=== PATIENT | male | born 1965 | race Two or more races ===

== ENCOUNTER 2017-07-21 09:48 | Outpatient (CLI) | payer OTHER ==
[~2017-07-21 09:48] MED LIST: BUDEO.25 IH; LEVAQUIN750 MG PO; MEDROL4 MG PO; PROVENTIL3 ML/2.5 M IH; TUSSIONEX PENNKI5 ML PO
== END 2017-07-21 13:19 | disposition home or self-care (01) ==
LOC: LAB 09:48
DX: R10.9 Unspecified abdominal pain (principal); R19.5 Other fecal abnormalities; E11.65 Type 2 diabetes mellitus with hyperglycemia; I10 Essential (primary) hypertension; R80.9 Proteinuria, unspecified; Z13.89 Encounter for screening for other disorder; Z11.3 Encounter for screening for infections with a predominantly sexual mode of transmission; J98.4 Other disorders of lung

== ENCOUNTER 2017-07-23 07:31 | Emergency (ER) | payer OTHER ==
[~2017-07-23] VITALS: Ht 182.9 cm; Wt 104.3 kg
[2017-07-23] MEDS ORDERED: COZAAR25 MG (07:59)
[2017-07-23] MEDS ORDERED: HUMULIN 70100 UNIT/2 (08:00)
[2017-07-23] MEDS ORDERED: NORFLEX100MG PO (12:25)
[2017-07-23] MEDS ORDERED: KETO10TA2 PO (12:25)
== END 2017-07-23 17:22 | disposition home or self-care (01) ==
LOC: ER 07:31
DX: M54.89 Other dorsalgia (principal); R07.89 Other chest pain; M94.0 Chondrocostal junction syndrome [Tietze]

== ENCOUNTER → 2017-07-24 10:57 | Outpatient (CLI) | payer OTHER ==
[~2017-07-24 10:57] MED LIST changes: +COZAAR25 MG; +HUMULIN 70100 UNIT/2; +KETO10TA2 PO; +NORFLEX100MG PO
== END | disposition home or self-care (01) ==
LOC: LAB 10:57
DX: R10.9 Unspecified abdominal pain (principal); R19.5 Other fecal abnormalities; E11.65 Type 2 diabetes mellitus with hyperglycemia; I10 Essential (primary) hypertension; R80.9 Proteinuria, unspecified; Z13.89 Encounter for screening for other disorder; Z11.3 Encounter for screening for infections with a predominantly sexual mode of transmission; Z12.11 Encounter for screening for malignant neoplasm of colon; J98.4 Other disorders of lung

== ENCOUNTER 2017-07-27 13:21 | Outpatient (CLI) | payer OTHER | END 2017-07-27 13:32 | disposition home or self-care (01) | LOC: SONOGRAMA 13:21 | DX: Z00.01 Encounter for general adult medical examination with abnormal findings (principal); N39.0 Urinary tract infection, site not specified; R19.7 Diarrhea, unspecified; R10.9 Unspecified abdominal pain; R11.11 Vomiting without nausea ==

== ENCOUNTER 2017-09-03 10:32 | Outpatient (CLI) | payer OTHER ==
[2017-09-05] MEDS ORDERED: COZAAR100 MG PO (10:30)
[2017-09-05] MEDS ORDERED: JANUVIA100 MG PO (10:30)
== END 2017-09-03 11:29 | disposition home or self-care (01) ==
LOC: LAB 10:32
DX: Z01.818 Encounter for other preprocedural examination (principal); K43.9 Ventral hernia without obstruction or gangrene

== ENCOUNTER 2017-09-07 09:57 | Day surgery (SDC) | payer OTHER ==
[~2017-09-07 09:57] MED LIST changes: +COZAAR100 MG PO; +JANUVIA100 MG PO
== END 2017-09-07 16:40 | disposition home or self-care (01) ==
LOC: CIR.AMB 09:57
DX: K43.9 Ventral hernia without obstruction or gangrene (principal)

== ENCOUNTER → 2019-07-09 10:08 | Outpatient (CLI) | payer OTHER | END | disposition home or self-care (01) | LOC: LAB 10:08 | DX: I10 Essential (primary) hypertension (principal) ==

== ENCOUNTER 2021-11-03 07:00 | Outpatient (CLI) | payer OTHER | END 2021-11-03 07:08 | disposition home or self-care (01) | LOC: LAB 07:00 | PROVIDERS: ATTEND Specialist | DX: R05.8 Other specified cough (principal); E08.9 Diabetes mellitus due to underlying condition without complications; R80.9 Proteinuria, unspecified ==

== ENCOUNTER 2021-11-03 07:54 | Outpatient (CLI) | payer OTHER | END 2021-11-03 08:17 | disposition home or self-care (01) | LOC: MRI 07:54 | PROVIDERS: ATTEND Specialist | DX: M25.59 Pain in other specified joint (principal); E08.9 Diabetes mellitus due to underlying condition without complications; R05.8 Other specified cough | CPT/HCPCS: 73718 ==

== ENCOUNTER 2021-12-06 08:36 | Outpatient (CLI) | payer OTHER | END 2021-12-06 08:37 | disposition home or self-care (01) | LOC: SONOGRAMA 08:36 | PROVIDERS: ATTEND Specialist | DX: R80.8 Other proteinuria (principal); E08.9 Diabetes mellitus due to underlying condition without complications ==

== ENCOUNTER 2022-01-31 13:28 | Outpatient (CLI) | payer OTHER | END 2022-01-31 14:00 | disposition home or self-care (01) | LOC: RAD 13:28 | PROVIDERS: ATTEND Podiatrist | DX: M77.41 Metatarsalgia, right foot (principal); J32.9 Chronic sinusitis, unspecified ==

== ENCOUNTER 2024-03-06 13:51 | Inpatient (IN) | payer OTHER ==
[~2024-03-06] VITALS: Ht 182.9 cm; Wt 117.9 kg
[2024-03-06] MEDS ORDERED: NORVASC5 MG PO (15:23)
[2024-03-06] MEDS ORDERED: CHILDREN'S ASPI81 MG PO (15:24)
[2024-03-06] MEDS ORDERED: LIPITOR40 M1 PO (15:24)
[2024-03-06] MEDS ORDERED: JANUVIA25 MG (15:26)
--- NOTE | 2024-03-06 15:39 | NUR ---
SE RECIBE PTE ALERTA Y ORIENTADO X3 EL MISMO CON REFERIDO MEDICO QUE REFIERE REALIZAR MUESTRAS DE SNAGRE POR DOLOR DE PECHO Y TAQUICARDIA. PTE REFIERE QUE PRESENTA EL MISMO DOLOR HACE 1 MES Y TAQUICARDIAS, SE OBSERVA PTE CON TOS SECA. SE REALIZA EKG Y SE RPESENTA A DR MEJÍA, PACIENTE CON VITALES ESTABLES AL MOMENTO, SE ACOMODA.
--- NOTE | 2024-03-06 16:58 | NUR ---
PTE EVALUADO POR MD MCCOY. RN SANDERS ORIENTA SOBRE TRATAMIENTO MEDICO. SE JOAO MUESTRAS DE LAB Y SE REALIZA EKG POR ORDEN MEDICA
[2024-03-06 17:47] LABS: HEMATOCRIT 42.1 % (39.0-48.0); HEMOGLOBIN 14.6 g/dL (13-16.00); MEAN CELL VOLUME 92.5 fL (80.0-100.00); MEAN CORPUSCULAR HEMOGLOBIN 32.1 pg (27.00-32.0); MEAN CORPUSCULAR HGB CONC 34.7 g/dl (32.0-36.0); PLATELET COUNT 238 K/uL (150-450); RED BLOOD COUNT 4.55 M/uL (4.00-6.00); RED CELL DISTRIBUTION WIDTH 13.6 % (11.5-14.5)
[2024-03-06 18:47] LABS: ALBUMIN 3.8 gm/dL (3.4-5.0); BILIRUBIN TOTAL 0.69 mg/dL (0.3-1.2); CALCIUM 9.7 mg/dL (8.5-10.1); CREATININE SERUM 3.07 mg/dL (0.70-1.30); GFR 21.11; GLOBULINA 4.2 G/DL (2.4-3.5); POTASSIUM 4.71 mEq/L (3.5-5.1); TSH 4.13 uIU/mL (0.358-3.74)
[2024-03-06] MEDS ORDERED: ACETAMINOPHEN 500 MG GEL..CAP PO PRN (19:30)
[2024-03-06] MEDS ORDERED: 0.9 % SODIUM CHLORIDE 1,000 ML IV SCH (19:30)
[2024-03-06] MEDS ORDERED: hydrALAZINE HCL 20 MG VIAL IV PRN (19:30)
[2024-03-06] MEDS ORDERED: hydrALAZINE HCL 20 MG VIAL IV ONE (19:45)
[2024-03-06] MEDS ORDERED: DEXTROSE 50 % IN WATER 0.5 G/ML DISP.SYRIN IV PRN (19:45)
[2024-03-06] MEDS ORDERED: INSULIN LISPRO 1,000 UNIT/10 ML UNITS SUBCUTANEO PRN (19:45)
[2024-03-06 23:19] LABS: URINE APPEARANCE Clear; URINE BILIRRUBIN Negative (NEGATIVE); URINE BLOOD Trace; URINE COLOR Yellow; URINE GLUCOSE Negative (NEGATIVE); URINE KETONE Negative (NEGATIVE); URINE LEUKOCYTE Negative; URINE NITRATE Negative; URINE PROTEIN >=1000 (NEGATIVE); URINE UROBILINOGEN 0.2 E.U./dl
[2024-03-06 23:23] LABS: URINE BACTERIA 13.4 uL (0.0-1933); URINE WBC 2.2 uL (0.0-23.2)
[2024-03-06 23:35] LABS: URINE CAST 0.29 uL (0.0-1.40); URINE EPITHELIAL CELLS 0.9 uL (0.0-38.8); URINE RBC 1.9 uL (0.0-20.8)
[2024-03-07 02:46] VITALS: BP 160/90; O2SAT 97
[2024-03-07 06:21] LABS: INR 0.94; PARTIAL THROMBOPLASTIN TIME 28.3 SECONDS (22.0-34.0); PROTHROMBIN TIME 10.3 SECONDS (9.0-11.5)
[2024-03-07 07:00] VITALS: BP 198/104; O2SAT 99
[2024-03-07 07:05] LABS: CHOL HDL RATIO 6.8 (0-5.0); MAGNESIUM 2.1 mg/dL (1.8-2.4); PHOSPHOROUS 2.7 mg/dL (2.5-4.9)
[2024-03-07 08:00] VITALS: BP 160/98
[2024-03-07] MEDS ORDERED: AMLODIPINE BESYLATE 5 MG TABLET PO SCH (09:00)
[2024-03-07] MEDS ORDERED: FAMOTIDINE/PF 20 MG in 0.9 % SODIUM CHLORIDE 8 ML IV PUSH SCH (09:00)
[2024-03-07] MEDS ORDERED: ATORVASTATIN CALCIUM 20 MG TABLET PO SCH (09:00)
[2024-03-07] MEDS ORDERED: ENOXAPARIN SODIUM 30 MG/0.3 ML SYRINGE SUBCUTANEO SCH (09:00)
[2024-03-07 16:27] VITALS: BP 165/95; O2SAT 98
[2024-03-07] MEDS ORDERED: LOSARTAN POTASSIUM 100 MG TABLET PO SCH (19:05)
[2024-03-07] MEDS ORDERED: LOSARTAN/HYDROCHLOROTHIAZIDE 1 TAB TABLET PO SCH (19:11)
[2024-03-08 01:00] VITALS: BP 115/64; O2SAT 95
[2024-03-08 08:27] VITALS: BP 174/94; O2SAT 97
[2024-03-08 14:29] VITALS: O2SAT 98
[2024-03-08 16:04] LABS: CKMB 18.6 NG/ML (0.5-3.6)
[2024-03-08 16:21] VITALS: O2SAT 100
[2024-03-08 17:16] VITALS: BP 166/86
[2024-03-08 20:11] VITALS: O2SAT 97
[2024-03-09] VITALS (9 sets, daily range): BP systolic 159–185; BP diastolic 82–95; O2SAT 93–98
[2024-03-09] MEDS ORDERED: FAMOTIDINE/PF 20 MG/2 ML VIAL ONE (08:30)
[2024-03-09] MEDS ORDERED: NITROGLYCERIN IN 5 % DEXTROSE 250 ML IV SCH (09:00)
[2024-03-09] MEDS ORDERED: ASPIRIN 81 MG TABLET.EC PO SCH (09:00)
[2024-03-09] MEDS ORDERED: CLOPIDOGREL BISULFATE 75 MG TABLET PO SCH (09:00)
[2024-03-09 12:09] LABS: URINE PROT QUANT 24HR 248.7 MG/DL
[2024-03-09 12:10] LABS: URINE PROT QUANT 24 HR 5347.05 MG/24HR (42-225)
[2024-03-09 14:05] LABS: CREATINE CLEARANCE 60.3 ML/MIN (97-137); CREATININE SERUM 2.48 mg/dL (0.8-1.3)
[2024-03-10] VITALS (8 sets, daily range): BP systolic 139–185; BP diastolic 65–81; O2SAT 94–100
[2024-03-10] MEDS ORDERED: ENOXAPARIN SODIUM 30 MG/0.3 ML SYRINGE SUBCUTANEO SCH (09:00)
[2024-03-11] VITALS (9 sets, daily range): BP systolic 119–151; BP diastolic 75–83; O2SAT 94–98
[2024-03-11] MEDS ORDERED: CARVEDILOL 3.125 MG TABLET PO SCH (09:00)
[2024-03-11] MEDS ORDERED: ENOXAPARIN SODIUM 60 MG/0.6 ML SYRINGE SUBCUTANEO SCH (09:00)
[2024-03-11] MEDS ORDERED: ISOSORBIDE MONONITRATE 30 MG TABLET PO SCH (09:00)
[2024-03-12 03:12] VITALS: BP 128/65; O2SAT 97
[2024-03-12 05:07] LABS: HEMATOCRIT 36.6 % (39.0-48.0); HEMOGLOBIN 13.2 g/dL (13-16.00); MEAN CELL VOLUME 89.7 fL (80.0-100.00); MEAN CORPUSCULAR HEMOGLOBIN 32.4 pg (27.00-32.0); MEAN CORPUSCULAR HGB CONC 36.2 g/dl (32.0-36.0); PLATELET COUNT 218 K/uL (150-450); RED BLOOD COUNT 4.08 M/uL (4.00-6.00); RED CELL DISTRIBUTION WIDTH 13.8 % (11.5-14.5)
[2024-03-12 05:44] LABS: CALCIUM 8.5 mg/dL (8.5-10.1); CREATININE SERUM 2.45 mg/dL (0.70-1.30); GFR 27.38; POTASSIUM 3.95 mEq/L (3.5-5.1); TSH 3.04 uIU/mL (0.358-3.74)
[2024-03-12 06:29] VITALS: O2SAT 97
[2024-03-12 10:04] VITALS: BP 173/83; O2SAT 97
[2024-03-12 17:08] VITALS: O2SAT 97
[2024-03-12 18:05] VITALS: BP 135/80; O2SAT 97
[2024-03-12 19:29] VITALS: O2SAT 96
[2024-03-12] MEDS ORDERED: ENOXAPARIN SODIUM 60 MG/0.6 ML SYRINGE SUBCUTANEO SCH (21:00)
[2024-03-13] VITALS (8 sets, daily range): BP systolic 101–161; BP diastolic 52–93; O2SAT 95–98
== END 2024-03-13 19:15 | disposition home or self-care (01) | DRG 682 ==
LOC: ER 13:53 → MEDI 20:21
PROVIDERS: General Practice; Internal Medicine Endocrinology, Diabetes & Metabolism; Specialist/Technologist, Other Nephrology; ADMIT Internal Medicine; ATTEND Internal Medicine
PROC: BT43ZZZ Ultrasonography of Bilateral Kidneys (ICD-10-PCS; principal; 2024-03-06)
PROC: B246ZZZ Ultrasonography of Right and Left Heart (ICD-10-PCS; 2024-03-06)
PROC: 4A12X4Z Monitoring of Cardiac Electrical Activity, External Approach (ICD-10-PCS; 2024-03-06)
DX: N17.9 Acute kidney failure, unspecified (principal); I21.4 Non-ST elevation (NSTEMI) myocardial infarction; E11.21 Type 2 diabetes mellitus with diabetic nephropathy; I12.9 Hypertensive chronic kidney disease with stage 1 through stage 4 chronic kidney disease, or unspecified chronic kidney disease; E11.65 Type 2 diabetes mellitus with hyperglycemia; N18.9 Chronic kidney disease, unspecified; E03.9 Hypothyroidism, unspecified; Z79.4 Long term (current) use of insulin